=== PATIENT | female | born 1950 | race Asian ===

== ENCOUNTER → 2020-09-06 | Outpatient (CLI) | payer OTHER ==
[~2020-09-06] MED LIST: BACTRIM DS 8001 TA1 PO; LIPITOR40 MG PO; NKHM; Oscal,Oyster S500 MG PO; VITAMIN D2000 IU PO
== END | disposition home or self-care (01) ==
LOC: RAD 08-30 14:00
PROVIDERS: ATTEND Physician Assistant
DX: M85.89 Other specified disorders of bone density and structure, multiple sites (principal)

== ENCOUNTER → 2021-02-03 | Day surgery (SDC) | payer OTHER ==
[~2021-02-03] VITALS: Ht 157.4 cm; Wt 57.2 kg
[~2021-02-03] MED LIST changes: +FISH OIL 1,2001 EACH PO; +GLUCOPHAGE1000 MG PO; +JANUVIA50 MG PO
[2021-02-03 08:15] VITALS: BP 157/69
[2021-02-03 10:12] VITALS: BP 89/50
[2021-02-03 10:27] VITALS: BP 111/72
== END | disposition home or self-care (01) ==
LOC: SDC 01-31 11:00
PROVIDERS: ATTEND Surgery
DX: Z12.11 Encounter for screening for malignant neoplasm of colon (principal); E11.9 Type 2 diabetes mellitus without complications; E78.5 Hyperlipidemia, unspecified; F17.210 Nicotine dependence, cigarettes, uncomplicated; Z98.890 Other specified postprocedural states; Z79.899 Other long term (current) drug therapy

== ENCOUNTER → 2021-04-06 | Outpatient (CLI) | payer OTHER ==
[~2021-04-06] MED LIST changes: +JANUVIA100 MG PO; -JANUVIA50 MG PO; -VITAMIN D2000 IU PO; +VITAMIN D250 MC1 PO
== END | disposition home or self-care (01) ==
LOC: CARD 00:31
PROVIDERS: ATTEND Internal Medicine Cardiovascular Disease
DX: R07.89 Other chest pain (principal); J44.9 Chronic obstructive pulmonary disease, unspecified

== ENCOUNTER → 2022-02-14 | Outpatient (CLI) | payer OTHER | END | disposition home or self-care (01) | LOC: RAD 16:25 | PROVIDERS: ATTEND Physician Assistant | DX: M50.323 Other cervical disc degeneration at C6-C7 level (principal); M85.88 Other specified disorders of bone density and structure, other site; M25.712 Osteophyte, left shoulder; M25.812 Other specified joint disorders, left shoulder ==

== ENCOUNTER → 2023-01-08 | Outpatient (CLI) | payer OTHER | END | disposition home or self-care (01) | LOC: LAB 14:01 | PROVIDERS: ATTEND Internal Medicine Critical Care Medicine | DX: B44.9 Aspergillosis, unspecified (principal) ==

== ENCOUNTER → 2023-07-18 | Outpatient (CLI) | payer OTHER | END | disposition home or self-care (01) | LOC: CARD 09:58 | PROVIDERS: ATTEND Internal Medicine Cardiovascular Disease | DX: I25.10 Atherosclerotic heart disease of native coronary artery without angina pectoris (principal); R01.1 Cardiac murmur, unspecified ==

== ENCOUNTER → 2025-01-15 | Outpatient (CLI) | payer OTHER ==
[2025-01-15 14:56] LABS: VITAMIN D, 25-HYDROXY 51.3 ng/mL (30-100)
== END | disposition home or self-care (01) ==
LOC: LAB 14:04
PROVIDERS: ATTEND Physician Assistant
DX: E55.9 Vitamin D deficiency, unspecified (principal); E83.52 Hypercalcemia

== ENCOUNTER → 2025-03-18 | Outpatient (CLI) | payer OTHER ==
[~2025-03-18] MED LIST changes: +Regadenoson 0.4 MG/5 ML SYR IV ONE; +Technetium Tc 99M Tetrofosmi 0.23 MG KIT IJ SCH
== END | disposition home or self-care (01) ==
LOC: CARD 00:59
PROVIDERS: ATTEND Physician Assistant
DX: R07.9 Chest pain, unspecified (principal)

== ENCOUNTER → 2025-08-10 | Outpatient (CLI) | payer OTHER ==
[~2025-08-10] MED LIST changes: -Regadenoson 0.4 MG/5 ML SYR IV ONE; -Technetium Tc 99M Tetrofosmi 0.23 MG KIT IJ SCH; +Technetium Tc-99m pertechnetat 1 KIT KIT IV SCH
== END | disposition home or self-care (01) ==
LOC: NM 07:00
PROVIDERS: ATTEND Physician Assistant
DX: E05.90 Thyrotoxicosis, unspecified without thyrotoxic crisis or storm (principal)

== ENCOUNTER → 2025-08-11 | Outpatient (CLI) | payer OTHER ==
[~2025-08-11] MED LIST changes: -Technetium Tc-99m pertechnetat 1 KIT KIT IV SCH
== END | disposition home or self-care (01) ==
LOC: US 04:05
PROVIDERS: ATTEND Physician Assistant
DX: E05.20 Thyrotoxicosis with toxic multinodular goiter without thyrotoxic crisis or storm (principal)